=== PATIENT | male | born 1940 | race Caucasian/White ===

== ENCOUNTER → 2024-02-27 | Outpatient (CLI) | payer MEDICARE, OTHER ==
[~2024-02-27] MED LIST: ELIQUIS5 M2 PO; LISI20 PO; LISINOPRIL-HCT1 EACH PO; Simvastatin20 MG PO; TAMSULOSIN HCL0.4 M1 PO
== END | disposition home or self-care (01) ==
LOC: LAB SHORT 10:11 → LAB 10:11
DX: N39.0 Urinary tract infection, site not specified (principal)
CPT/HCPCS: 87077; 87086; 87186